=== PATIENT | male | born 1930 | race Two or more races ===

== ENCOUNTER 2019-08-18 09:10 | Inpatient (IN) | payer OTHER ==
[~2019-08-18] VITALS: Ht 167.6 cm; Wt 82.0 kg
[2019-08-18] MEDS ORDERED: LANTUS SOL100 UNIT/1 (09:24)
[2019-08-18] MEDS ORDERED: GLUMETZA500 MG (09:24)
== END 2019-08-20 17:18 | disposition home or self-care (01) | DRG 638 ==
LOC: ER 09:10 → SEC-K 18:56 → SURH 21:15
PROVIDERS: ADMIT Internal Medicine; ATTEND Internal Medicine
PROC: 4A12X4Z Monitoring of Cardiac Electrical Activity, External Approach (ICD-10-PCS; principal; 2019-08-18)
PROC: B246ZZZ Ultrasonography of Right and Left Heart (ICD-10-PCS; 2019-08-19)
DX: E11.65 Type 2 diabetes mellitus with hyperglycemia (principal); N17.8 Other acute kidney failure; E86.0 Dehydration; I10 Essential (primary) hypertension; I48.91 Unspecified atrial fibrillation